=== PATIENT | female | born 1995 | race Caucasian/White ===

== ENCOUNTER 2021-08-16 17:42 | Emergency (ER) | payer OTHER, SELFPAY ==
--- NOTE | ~2021-08-16 | XR_ITS ---
EXAMINATION: XR forearm RT 2V DATE: 08/16/2021 20:19 INDICATION: Right forearm injury and pain. TECHNIQUE: 2 views of right forearm were obtained. COMPARISON: None. FINDINGS: Bone alignment is normal. There is a nondisplaced oblique fracture of distal ulnar metaphys is. Joint spaces are normal. No elbow joint effusion. IMPRESSION: 1. Nondisplaced oblique fracture of distal ulnar metaphysis. Reviewed, dictated and finalized at location A. D MANAGER
--- NOTE | ~2021-08-16 | XR_ITS ---
EXAMINATION: XR hand RT min 3V DATE: 08/16/2021 20:18 INDICATION: Right hand injury and pain. TECHNIQUE: 3 views of right hand were obtained. COMPARISON: None. FINDINGS: Bone alignment is normal. There is a nondisplaced oblique fracture of distal ulnar metaphys is. Joint spaces are normal. IMPRESSION: 1. Nondisplaced oblique fracture of distal ulnar metaphysis. Reviewed, dictated and finalized at location A. PRESIDENT RISK MANAGEMENT
[2021-08-16 17:55] VITALS: BP 129/82; PULSE 93; RESP 18; TEMP 37.5; O2SAT 100
[2021-08-16 19:59] VITALS: BP 134/96; PULSE 91; RESP 16; O2SAT 100
--- NOTE | 2021-08-16 20:03 | ED.UPPEXIN ---
HPI - Extremity Injury (Upper) General Chief Complaint: Extremity Injury, Upper <Yina Browne PA-C - Last Filed: 08/16/21 20:54> Stated Complaint: R arm pain, Laceration finger <Yina Browne PA-C - Last Filed: 08/16/21 20:54> Time Seen by Provider: 08/16/21 19:51 <Yina Browne PA-C - Last Filed: 08/16/21 20:54> Source: patient <Yina Browne PA-C - Last Filed: 08/16/21 20:54> Mode of arrival: ambulatory <Yina Browne PA-C - Last Filed: 08/16/21 20:54> Limitations: no limitations <Yina Browne PA-C - Last Filed: 08/16/21 20:54> History of Present Illness HPI narrative: This is a 26-year-old female that presents the emergency department for right forearm injury sustained last night. Reports she got angry and hit something. Reports she has had swelling and bruising to the left forearm and wrist. Reports decreased range of motion due to pain. Also reports superficial abrasions of the fingers. Denies numbness. <Yina Browne PA-C - Last Filed: 08/16/21 20:54> Related Data Allergies/Adverse Reactions: Allergies Allergy/AdvReac Type Severity Reaction Status Date / Time No Known Allergies Allergy Unverified 08/16/21 20:58 <Yina Browne PA-C - Last Filed: 08/16/21 20:54> Review of Systems Review of Systems: CONSTITUTIONAL: Denies fever SKIN: Reports abrasions MUSCULOSKELETAL: Reports joint pain, and myalgia. NEUROLOGIC: Denies numbness <Yina Browne PA-C - Last Filed: 08/16/21 20:54> All systems reviewed & are unremarkable except as noted in HPI and below <Yina Browne PA-C - Last Filed: 08/16/21 20:54> PMFSH Past Medical History Medical History: Medical History (Updated 08/16/21 @ 20:48 by Yina Browne PA-C) History of bipolar disorder <Yina Browne PA-C - Last Filed: 08/16/21 20:54> Social History Social History: Social History (Updated 08/16/21 @ 20:05 by Yina Browne PA-C) Smoking status: Current every day smoker <Yina Browne PA-C - Last Filed: 08/16/21 20:54> Exam Narrative: GENERAL: Well-appearing, well-nourished, and in no acute distress. HEAD: Normocephalic, atraumatic. EYES: EOMI. EXTREMITIES: Normal range of motion. Mild edema and bruising to the right forearm and wrist. Normal radial pulses. Normal sensation SKIN: Warm, dry, no rash. Superficial abrasions to the right 3rd and 4th fingers NEURO: No focal deficits. Alert and oriented x3. 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 I was available for evaluation and consultation, I agree with the documentation <Marquis Buck MD - Last Filed: 08/16/21 23:24> Vital Signs Vital signs: Vital Signs Temperature 37.5 C 08/16/21 17:55 Pulse Rate 93 08/16/21 17:55 Respiratory Rate 18 08/16/21 17:55 Blood Pressure 129/82 08/16/21 17:55 Pulse Oximetry 100 08/16/21 17:55 Temperature 36.6 C 08/16/21 20:56 Pulse Rate 88 08/16/21 20:56 Respiratory Rate 16 08/16/21 20:56 Blood Pressure 127/88 08/16/21 20:56 Pulse Oximetry 100 08/16/21 20:56 <Yina Browne PA-C - Last Filed: 08/16/21 20:54> Vital Signs Temperature 37.5 C 08/16/21 17:55 Pulse Rate 93 08/16/21 17:55 Respiratory Rate 18 08/16/21 17:55 Blood Pressure 129/82 08/16/21 17:55 Pulse Oximetry 100 08/16/21 17:55 Temperature 36.6 C 08/16/21 20:56 Pulse Rate 88 08/16/21 20:56 Respiratory Rate 16 08/16/21 20:56 Blood Pressure 127/88 08/16/21 20:56 Pulse Oximetry 100 08/16/21 20:56 <Marquis Buck MD - Last Filed: 08/16/21 23:24> Procedures Orthopedic Splinting/Casting Injury #1: Splinting/Casting Date: 08/16/21 <Yina Browne PA-C - Last Filed: 08/16/21 20:54> Splinting/Casting Time: 20:45 <Joanna Weems
[2021-08-16 20:56] VITALS: BP 127/88; PULSE 88; RESP 16; TEMP 36.6; O2SAT 100
[2021-08-16] MEDS: HYDROcodone/acetaminophen (*CRX) 5-325 MG TABLET 1 TAB PO (21:01)
== END 2021-08-16 21:25 | disposition home or self-care (01) ==
LOC: ANHED 21:09
PROVIDERS: Emergency Provider Emergency Medicine; PCP Internal Medicine
DX: S52.601A Unspecified fracture of lower end of right ulna, initial encounter for closed fracture (principal); F17.210 Nicotine dependence, cigarettes, uncomplicated; W22.09XA Striking against other stationary object, initial encounter
CPT/HCPCS: 29125; 73090; 73130; 99284; A9270

== ENCOUNTER 2021-09-06 10:03 | Emergency (ER) | payer OTHER, SELFPAY ==
--- NOTE | ~2021-09-06 | XR_ITS ---
XR knee LT min 4V DATE: 09/06/2021 11:19 INDICATION: Pain and swelling after twisting injury 3 days ago TECHNIQUE: 4 views including crosstable lateral COMPARISON: None FINDINGS: There is prominent distention of suprapatellar bursa consistent with joint effusion. No fat fluid level is detected to suggest lipohemarthrosis. No fracture or dislocation, periosteal reaction or bone destruction, joint space narrowing, radiopaqu e intra-articular loose body or chondrocalcinosis is detected. IMPRESSION: Knee joint effusion; no fracture or dislocation is detected Reviewed, dictated and finalized at location A. CRATER
[2021-09-06 10:17] VITALS: BP 118/80; PULSE 102; RESP 16; TEMP 36.7; O2SAT 100
--- NOTE | 2021-09-06 11:54 | ED.GENADULT ---
HPI - General Adult General Chief complaint: Extremity Injury, Lower Stated complaint: knee pain Time Seen by Provider: 09/06/21 10:22 Source: patient Mode of arrival: ambulatory Limitations: no limitations History of Present Illness HPI narrative: Pt presents for evaluation and treatment of left knee pain. Symptom onset three days ago. She indicates she twisted her left knee when she was falling off a couch. She did not hit her head nor did she have a LOC. She states her pain has been constant since that time. She states pain is sharp, shooting, 9/10 in severity. Weight bearing and movement make her pain worse. She has been taking tylenol with some improvement in her symptoms thereafter. She states she has a history of torn meniscus in contralateral knee. Related Data Allergies Allergy/AdvReac Type Severity Reaction Status Date / Time No Known Allergies Allergy Verified 09/06/21 11:20 Review of Systems Review of Systems: CONSTITUTIONAL: Denies fever, chills, or sweats. EYES: Denies visual changes, redness, or discharge. ENT: Denies rhinorrhea, congestion, sore throat, or otalgia. CARDIOVASCULAR: Denies chest pain, palpitations, or edema. RESPIRATORY: Denies cough or dyspnea. GASTROINTESTINAL: Denies abdominal pain, nausea, vomiting, or diarrhea. GENITOURINARY: Denies dysuria or hematuria. SKIN: Denies rash or itching. MUSCULOSKELETAL: Reports left knee pain. Denies back pain or myalgia. NEUROLOGIC: Denies headache, numbness, dizziness, or weakness. PSYCHIATRIC: Denies anxiety or depression. [facility] Past Medical History Medical History (Updated 09/06/21 @ 12:05 by CHANELLE Betancourt, ) Anxiety History of bipolar disorder Insomnia Surgical History Surgical History History of medial meniscus repair of right knee Family History Family History Mother No pertinent past medical history Other Cerebrovascular accident Depression Heart disease Hypertension Thyroid disease Social History Social History Smoking status: Current every day smoker Alcohol intake: never Substance use: never Additional living arrangements comments: Lives with boyfriend Gender identity (if verbalized by the patient): Female Sexual Orientation (if Verbalized by the Patient): Straight or Heterosexual Spiritual care concerns: No Exam Narrative: GENERAL: Well-appearing, well-nourished, and in no acute distress. HEAD: Normocephalic, atraumatic. EYES: PERRLA and EOMI. ENT: Nares clear, no rhinorrhea or epistaxis. Mucous membranes moist. Oropharynx without tonsillar hypertrophy exudate or other lesions. Bilateral TMs pearly orr nonbulging NECK: Supple. No adenopathy or masses. No carotid bruits or JVD CHEST: Clear to auscultation. No respiratory distress. No wheezes rales or rhonchi HEART: Regular rate and rhythm. No murmur heard. Normal peripheral pulses. ABDOMEN: Soft, nontender, nondistended, normal active bowel sounds. EXTREMITIES: Decreased active and passive ROM of left knee. There is swelling in anterior aspect of left knee. There is tenderness circumferentially in left knee. There is no crepitus or deformity SKIN: Warm, dry, no rash. NEURO: No focal deficits. Alert and oriented x3. PSYCH: Normal mood and affect. Course Course Emergency Course: This is a 26-year-old female who presents with left knee pain after twisting the knee three days ago. X ray was negative for fracture. There is effusion present on exam and x ray. She was advised on RICE therapy. She was provided with knee immobilizer and crutches. She was advised to call ortho for appt. May need non-emergent MRI. Will dc with ibuprofen and norco. She should return for worsening symptoms. Pt in agreement with plan of care. Vital Signs Vital signs: Vital Si
[2021-09-06] MEDS: HYDROcodone/acetaminophen (*CRX) 5-325 MG TABLET 2 TAB PO (12:35)
[2021-09-06 12:40] VITALS: BP 109/76; PULSE 88; RESP 16; TEMP 36.4; O2SAT 100
== END 2021-09-06 12:40 | disposition home or self-care (01) ==
PROVIDERS: Emergency Provider Nurse Practitioner; PCP Internal Medicine
DX: S86.912A Strain of unspecified muscle(s) and tendon(s) at lower leg level, left leg, initial encounter (principal); F17.200 Nicotine dependence, unspecified, uncomplicated; W08.XXXA Fall from other furniture, initial encounter
CPT/HCPCS: 73564; 99283; A9270

== ENCOUNTER 2021-10-23 09:56 | Emergency (ER) | payer OTHER, SELFPAY ==
--- NOTE | ~2021-10-23 | XR_ITS ---
EXAMINATION: XR chest 2V EXAM DATE: 10/23/2021 12:51 INDICATION: Cough. TECHNIQUE: Frontal and lateral projections of the chest obtained and reviewed. Comparison is made to prior examination from 07/13/2012. FINDINGS: The lungs are clear. There are no pleural effusions. The cardiomediastinal silhouette is within normal limits. There is no pneumothorax suspected. The bones and soft tissues are unremarkab le. IMPRESSION: Unremarkable chest x-ray exam. Reviewed, dictated and finalized at location B. 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
[2021-10-23 10:03] VITALS: BP 139/68; PULSE 81; RESP 18; TEMP 36.4; O2SAT 100
--- NOTE | 2021-10-23 10:29 | ECG_ITS ---
Measurements Intervals [place] Rate: 96 P: 49 NC: 136 QRS: 52 QRSD: 81 T: 45 QT: 346 QTc: 439 Interpretive Statements SINUS RHYTHM DELAYED PRECORDIAL R/S TRANSITION MINIMAL Q WAVES- INFERIOR LEADS BORDERLINE ECG Electronically Signed On 10-24-2021 14:56:48 SCHOOL BUS TECHNICIAN by Roldan Ramos D.O.
[2021-10-23 12:13] VITALS: BP 112/70; PULSE 84; RESP 22; O2SAT 100
[2021-10-23 12:17] VITALS: PULSE 66
--- NOTE | 2021-10-23 12:28 | ED.SOB ---
HPI - SOB/Dyspnea General Chief Complaint: Shortness of Breath/Dyspnea Stated Complaint: shortness of breath Time Seen by Provider: 10/23/21 12:09 Source: patient Mode of arrival: ambulatory Limitations: no limitations History of Present Illness HPI Narrative: Patient is a 26-year-old female complaining of palpitations, accompanied by shortness of breath that started a few days ago . Patient states that she had some dizziness earlier but now resolved. Patient denies any chest pain, abdominal pain, nausea, vomiting, diaphoresis, fever or chills. Related Data Home Medications Medication Instructions Recorded Confirmed cariprazine [Vraylar] 4.5 mg PO DAILY 10/23/21 10/23/21 trazodone 100 mg PO HS PRN 10/23/21 10/23/21 Allergies Allergy/AdvReac Type Severity Reaction Status Date / Time No Known Allergies Allergy Verified 10/23/21 12:22 Review of Systems Review of Systems: All systems reviewed & are unremarkable except as noted in HPI and below Constitutional: Constitutional: Denies body ache(s), Denies chills, Denies excessive sweating, Denies fatigue, Denies fever(s), Denies headache(s), Denies lethargy, Denies malaise, Denies weakness and Denies weight loss Eyes: Eyes: Denies blurry vision, Denies change in vision and Denies loss of vision ENT: Denies dizziness, Denies ear discharge, Denies headache(s), Denies lip swelling, Denies epistaxis, Denies nasal congestion, Denies neck pain, Denies throat swelling and Denies tongue swelling Cardiovascular: Cardiovascular: Denies chest pain, Denies chest pain at rest, Denies chest pain with activity, Denies diaphoresis, Denies rapid heart rate, Denies edema, Denies irregular heart rhythm, Denies lightheadedness and Denies palpitations Respiratory: Respiratory: Denies chest congestion, Denies cough and Denies hemoptysis Gastrointestinal: Gastrointestinal: Denies abdominal pain, Denies melena, Denies hematochezia, Denies diarrhea, Denies nausea, Denies vomiting and Denies hematemesis Musculoskeletal: Musculoskeletal: Denies abnormal gait, Denies deformity, Denies joint swelling, Denies limited range of motion, Denies neck pain and Denies numbness Neurologic: Denies Abnormal speech present, Denies abnormal gait, Denies confusion, Denies dizziness, Denies headache(s), Denies focal weakness, Denies loss of vision, Denies numbness, Denies Other visual disturbances, Denies Sensory deficit (Neuro) and Denies weakness Psychiatric: Psychiatric: Denies confusion, Denies depression, Denies auditory hallucinations, Denies homicidal ideation and Denies suicidal ideation Endocrine: Endocrine: Denies cold intolerance, Denies excessive sweating, Denies fatigue, Denies heat intolerance and Denies palpitations Hematologic/Lymphatic: Hematologic/Lymphatic: Denies easy bleeding and Denies easy bruising Allergic/Immunologic: Allergic/Immunologic: Denies lip swelling, Denies throat swelling and Denies tongue swelling PMFSH Past Medical History Medical History Anxiety History of bipolar disorder Insomnia Surgical History Surgical History History of medial meniscus repair of right knee Family History Family History Mother No pertinent past medical history Other Cerebrovascular accident Depression Heart disease Hypertension Thyroid disease Social History Social History Smoking status: Current every day smoker Alcohol intake: never Substance use: never Additional living arrangements comments: Lives with boyfriend Gender identity (if verbalized by the patient): Female Sexual Orientation (if Verbalized by the Patient): Straight or Heterosexual Spiritual care concerns: No Exam Const: General: cooperative, healthy appearing, comfortable, no acute
[2021-10-23 13:13] LABS: Basophils Absolute Auto 0.1 K/mm3 (0.0-0.1); Basophils Percent Auto 1.3 % (0.2-1.2); Eosinophils Percent Auto 0.3 % (0-4.4); Hematocrit 44.6 % (37.0-47.0); Hemoglobin 14.6 g/dL (12.0-15.0); Immature Granulocyte Absolute 0.02 K/mm3 (0.00-0.031); Immature Granulocyte Percent A 0.3 % (0-0.5); Lymphocytes Absolute Auto 2.21 K/mm3 (0.9-3.2); Lymphocytes Percent Auto 36.2 % (18.3-44.2); Mean Corpuscular HGB Conc 32.7 g/dl (32-36); Mean Corpuscular Hemoglobin 31.3 pg (26-34); Mean Corpuscular Volume 95.7 fl (80-100); Mean Platelet Volume 9.3 fl (7.4-10.4); Monocytes Absolute Auto 0.4 K/mm3 (0.1-0.6); Neutrophils Absolute Auto 3.4 K/mm3 (1.3-6.7); Neutrophils Percent Auto 54.9 % (45.5-73.1); Platelet Count Result 219 k/mm3 (150-375); Red Blood Count 4.66 M/mm3 (4.2-5.4); Red Cell Distribution Width 11.6 % (11.5-14.5); White Blood Count 6.1 K/mm3 (4.5-10.0)
[2021-10-23 13:23] LABS: Anion Gap 5 mmol/L (8-16); Blood Urea Nitrogen 15 mg/dL (7-17); Calcium 9.1 mg/dL (8.4-10.2); Carbon Dioxide 25 mmol/L (22-30); Chloride 108 mmol/L (98-107); Estimated CRCL calculation 115 ml/min; Estimated Glomerular Filt Rate > 60; Glucose 94 mg/dL (65-110); Potassium 4.4 mmol/L (3.4-5.0); Sodium 138 mmol/L (137-145)
[2021-10-23 13:34] LABS: Troponin I < 0.012 ng/mL (0.000-0.034)
[2021-10-23 13:47] LABS: D Dimer < 0.22 ug/mL (<0.48)
[2021-10-23 14:03] VITALS: BP 116/73; PULSE 74; RESP 18; O2SAT 100
[2021-10-23 15:45] VITALS: BP 114/77; PULSE 88; RESP 18; O2SAT 98
== END 2021-10-23 15:46 | disposition home or self-care (01) ==
PROVIDERS: Emergency Provider Emergency Medicine; PCP Internal Medicine
DX: R00.2 Palpitations (principal); R06.00 Dyspnea, unspecified; F17.210 Nicotine dependence, cigarettes, uncomplicated; F41.9 Anxiety disorder, unspecified; F31.9 Bipolar disorder, unspecified
CPT/HCPCS: 36415; 71046; 80048; 81025; 84484; 85025; 85380; 93005; 99284

== ENCOUNTER 2022-09-04 08:25 | Emergency (ER) | payer OTHER, SELFPAY ==
[2022-09-04 08:35] VITALS: BP 123/85; PULSE 84; RESP 18; TEMP 36.4; O2SAT 98
--- NOTE | 2022-09-04 09:14 | ED.URI ---
HPI - URI/Sore Throat General Chief Complaint: Upper Respiratory Infection Stated Complaint: productive cough Time Seen by Provider: 09/04/22 09:15 Source: patient, RN notes reviewed and old records reviewed Mode of arrival: ambulatory Limitations: no limitations History of Present Illness HPI Narrative: 27-year-old female presents to the [facility] complaints productive cough from for the last 10+ days. Has been using cough drops and taking Mucinex DM. Denies fevers, chest pain, abdominal pain. Related Data Home Medications Medication Instructions Recorded Confirmed cariprazine 4.5 mg capsule 4.5 mg PO DAILY 10/23/21 09/04/22 (Vraylar) trazodone 100 mg tablet 100 mg PO HS PRN Sleep 10/23/21 09/04/22 Allergies Allergy/AdvReac Type Severity Reaction Status Date / Time No Known Allergies Allergy Verified 09/04/22 09:01 Review of Systems Review of Systems: All systems reviewed & are unremarkable except as noted in HPI and below Constitutional: Constitutional: Reports no additional constitutional complaints Eyes: Eyes: Reports no additional eye complaints ENT: Reports system reviewed and no additional complaints, except as documented Cardiovascular: Cardiovascular: Reports no additional cardiovascular complaints, Denies chest pain and Denies dyspnea Respiratory: Respiratory: Reports as per HPI, Denies chest congestion, Reports cough, Denies dyspnea and Denies wheezing Gastrointestinal: Gastrointestinal: Reports no additional gastrointestinal complaints, Denies abdominal pain, Denies nausea and Denies vomiting Musculoskeletal: Musculoskeletal: Reports no additional musculoskeletal complaints Integumentary/Breasts: Skin/Breast: Reports system reviewed and no additional complaints, except as docu Neurologic: Reports system reviewed and no additional complaints, except as documented Psychiatric: Psychiatric: Reports no additional psychiatric complaints Allergic/Immunologic: Allergic/Immunologic: Reports no additional allergic/immunologic complaints [facility] Past Medical History Medical History Anxiety History of bipolar disorder Insomnia Surgical History Surgical History History of medial meniscus repair of right knee Family History Family History Mother No pertinent past medical history Other Cerebrovascular accident Depression Heart disease Hypertension Thyroid disease Social History Social History (Reviewed 09/04/22 @ 14:35 by CATY Hair Smoking status: Current every day smoker Alcohol intake: never Substance use: never Additional living arrangements comments: Lives with boyfriend Gender identity (if verbalized by the patient): Female Sexual Orientation (if Verbalized by the Patient): Straight or Heterosexual Spiritual care concerns: No Comments At the time of my signature, I reviewed and agree with the nursing past medical, surgical, social, and family history. There is no relevant family history pertinent to the patient complaint. Exam Const: General: cooperative, healthy appearing, comfortable, no acute distress, well developed, alert and well nourished Nutritional Appearance: well nourished Orientation/consciousness: patient oriented x3 Limitations: no limitations HENMT: Head: normal to inspection Ears: hearing grossly normal bilaterally and external ears normal Face/Nose/Sinus: Normal external nose present, Normal nares present, Normal nasal mucous membranes and turbinates present and normal facial exam Face and sinus: normal facial exam Mouth: Yes Normal oral and palatal mucosa present, Yes lip normal and Yes moist mucous membranes Throat: posterior oropharynx normal and uvula midline Eyes: General: appearance normal, both eyes and all related structures Alignment and Position: alignmen
== END 2022-09-04 09:25 | disposition home or self-care (01) ==
PROVIDERS: Emergency Provider Nurse Practitioner; PCP Internal Medicine
DX: J20.9 Acute bronchitis, unspecified (principal); F17.200 Nicotine dependence, unspecified, uncomplicated
CPT/HCPCS: 99213; G0463

== ENCOUNTER 2023-01-07 13:14 | Emergency (ER) | payer OTHER, SELFPAY ==
[2023-01-07] VITALS (30 sets, daily range): BP systolic 121–138; BP diastolic 78–95; PULSE 67–110; RESP 14–26; TEMP 36.8; O2SAT 97–100
--- NOTE | ~2023-01-07 | XR_ITS ---
EXAMINATION: XR chest 1V portable Exam Date/Time: 01/07/2023 14:00 CDT HISTORY: MIDLINE CHEST PAIN Comparison: 10/23/2021. RESULT: Lines, tubes, and devices: None. Lungs and pleura: Right hemidiaphragm elevation. Decreased lung volumes with crowding relative to th e prior. Lungs otherwise clear. Cardiomediastinal silhouette: Stable. Other: No acute osseous or upper abdominal finding. IMPRESSION: No acute cardiopulmonary process. Right hemidiaphragm elevation. Reviewed, dictated and finalized at location K.
--- NOTE | 2023-01-07 13:17 | ECG_ITS ---
Measurements Intervals [place] Rate: 97 P: 24 [place]: 146 QRS: 1 QRSD: 78 T: 34 QT: 341 QTc: 434 Interpretive Statements SINUS RHYTHM POSSIBLE ANTERIOR MYOCARDIAL INFARCTION , PROBABLY OLD [30 ms Q WAVE IN V3/V4, OR R < 0.2 mV IN V4] ABNORMAL ECG COMPARED TO ECG 10/23/2021 10:06:15 NO SIGNIFICANT CHANGES Electronically Signed On 01-07-2023 15:15:59 CDT by Renan Escalante M.D.
--- NOTE | 2023-01-07 13:32 | ED.CHESTPAIN ---
HPI - Chest Pain General Chief Complaint: Chest Pain Stated Complaint: just don't feel right Time Seen by Provider: 01/07/23 13:32 Source: patient and family Mode of arrival: ambulatory Limitations: no limitations History of Present Illness HPI narrative: Patient is a 27-year-old female with a history of bipolar disorder presenting to the emergency department for evaluation of upper abdominal pain, lower chest pain has been intermittent over the course of the morning. Patient reports intermittent aching chest pain with a burning sensation in the middle of her chest that radiates into her upper chest. No radiation to the back, jaw, neck, shoulder. No ripping or tearing sensation to the flank. No syncope. Associated with lightheadedness, denies dizziness. Reports nausea without vomiting. Patient reports upper abdominal pain which is aching in nature, no radiation to the flank. No associated lower abdominal pain. No dysuria or hematuria. No abdominal distention. Denies diarrhea or constipation. Denies history of this in the past. No recent car or air travel. No history of coagulopathy. No leg swelling or calf pain. No recent surgery or immobility. Pt with nexplanon in place. Related Data Home Medications Medication Instructions Recorded Confirmed cariprazine 4.5 mg capsule 4.5 mg PO DAILY 10/23/21 09/04/22 (Vraylar) trazodone 100 mg tablet 100 mg PO HS PRN Sleep 10/23/21 09/04/22 Allergies Allergy/AdvReac Type Severity Reaction Status Date / Time No Known Allergies Allergy Verified 09/04/22 09:01 Review of Systems Review of Systems: CONSTITUTIONAL: Denies fever, chills, or sweats. EYES: Denies visual changes, redness, or discharge. ENT: Denies rhinorrhea, congestion, sore throat, or otalgia. CARDIOVASCULAR: Denies current chest pain, palpitations, or edema. RESPIRATORY: Denies cough or dyspnea. GASTROINTESTINAL: Denies current abdominal pain, reports mild nausea, denies vomiting or diarrhea GENITOURINARY: Denies dysuria or hematuria. SKIN: Denies rash or itching. MUSCULOSKELETAL: Denies back pain, joint pain, or myalgia. NEUROLOGIC: Denies headache, numbness, or weakness. [facility] Past Medical History Medical History Anxiety History of bipolar disorder Insomnia Surgical History Surgical History History of medial meniscus repair of right knee Family History Family History Mother No pertinent past medical history Other Cerebrovascular accident Depression Heart disease Hypertension Thyroid disease Social History Social History Smoking status: Current every day smoker Alcohol intake: never Substance use: never Living arrangements: alone Additional living arrangements comments: Lives with boyfriend Occupation/Education: student Gender identity (if verbalized by the patient): Female Sexual Orientation (if Verbalized by the Patient): Straight or Heterosexual Spiritual care concerns: No Exam Narrative: GENERAL: Awake, alert, conversant HEAD: Normocephalic, atraumatic. EYES: PERRLA and EOMI. ENT: Nares clear, no rhinorrhea or epistaxis. Mucous membranes moist. NECK: Supple. CHEST: No respiratory distress, breathing even and non labored, no chest wall tenderness HEART: Tachycardic rate, sinus rhythm ABDOMEN:Non distended, non tender, no rebound, rigidity in all 4 quadrants EXTREMITIES: Normal range of motion. No edema. No calf tenderness bilaterally. SKIN: Warm, dry, no rash. NEURO:No focal deficits. Alert and oriented x3 Course Vital Signs Vital signs: Vital Signs Temperature 36.8 C 01/07/23 13:22 Pulse Rate 101 H 01/07/23 13:22 Respiratory Rate 16 01/07/23 13:22 Blood Pressure 138/91 H 01/07/23 13:22 Pulse Oximetry 97
[2023-01-07 13:45] LABS: Basophils Absolute Auto 0.1 K/mm3 (0.0-0.1); Basophils Percent Auto 1.4 % (0.2-1.2); Eosinophils Absolute Auto 0.1 K/mm3 (0-0.3); Eosinophils Percent Auto 1.1 % (0-4.4); Hematocrit 46.5 % (37.0-47.0); Hemoglobin 15.8 g/dL (12.0-15.0); Immature Granulocyte Absolute 0.05 K/mm3 (0.00-0.031); Immature Granulocyte Percent A 0.8 % (0-0.5); Lymphocytes Absolute Auto 1.95 K/mm3 (0.9-3.2); Lymphocytes Percent Auto 30.3 % (18.3-44.2); Mean Corpuscular Volume 94.1 fl (80-100); Mean Platelet Volume 9.4 fl (7.4-10.4); Monocytes Absolute Auto 0.4 K/mm3 (0.1-0.6); Monocytes Percent Auto 6.2 % (2.6-8.5); Neutrophils Absolute Auto 3.9 K/mm3 (1.3-6.7); Neutrophils Percent Auto 60.2 % (45.5-73.1); Platelet Count Result 260 k/mm3 (150-375); Red Blood Count 4.94 M/mm3 (4.2-5.4); Red Cell Distribution Width 11.3 % (11.5-14.5); White Blood Count 6.4 K/mm3 (4.5-10.0)
[2023-01-07] MEDS: ASPIRIN 81 MG CHEWABLE TABLET 324 MG PO (13:51)
[2023-01-07 13:58] LABS: Alanine Aminotransferase 30 U/L (6-35); Albumin Level 4.7 g/dL (3.5-5.1); Alkaline Phosphatase 86 U/L (38-126); Anion Gap 7 mmol/L (8-16); Aspartate Amino Transferase 28 U/L (14-36); Bilirubin,Total 0.7 mg/dL (0.2-1.3); Blood Urea Nitrogen 17 mg/dL (7-17); Calcium 9.1 mg/dL (8.4-10.2); Carbon Dioxide 28 mmol/L (22-30); Chloride 105 mmol/L (98-107); Estimated CRCL calculation 116 ml/min; Estimated Glomerular Filt Rate > 60; Glucose 92 mg/dL (65-110); Lipase 94 U/L (23-300); Potassium 3.7 mmol/L (3.4-5.0); Sodium 140 mmol/L (137-145)
[2023-01-07 13:59] LABS: Prothrombin Time 12.7 Seconds (11.1-14.7)
[2023-01-07 14:00] LABS: Partial Thromboplastin Time 27.2 SECONDS (22.3-36.8)
[2023-01-07 14:09] LABS: Troponin I < 0.012 ng/mL (0.000-0.034)
[2023-01-07] MEDS: SODIUM CHLORIDE 0.9% IV 1,000 ML 999 ML IV CONT (14:10)
[2023-01-07] MEDS: DICYCLOMINE HCL 10 MG CAPSULE PO (14:11)
[2023-01-07] MEDS: BELLADONNA ALK/PHENOB ELIX 10 ML, MAG HYDROX/ALUMINUM HYD/SIMETH 30 ML, LIDOCAINE HCL 2... PO (14:11)
[2023-01-07] MEDS: ONDANSETRON INJ 4 MG/2 ML VIAL IV PUSH (14:12)
[2023-01-07 14:35] LABS: D Dimer 0.28 ug/mL (<0.48)
[2023-01-07 16:54] LABS: Troponin I < 0.012 ng/mL (0.000-0.034)
== END 2023-01-07 17:20 | disposition home or self-care (01) ==
PROVIDERS: Emergency Provider Emergency Medicine
DX: R07.89 Other chest pain (principal); R11.0 Nausea; F41.9 Anxiety disorder, unspecified; F31.9 Bipolar disorder, unspecified; F17.200 Nicotine dependence, unspecified, uncomplicated; R94.31 Abnormal electrocardiogram [ECG] [EKG]
CPT/HCPCS: 36415; 71045; 80053; 83690; 84484; 85025; 85380; 85610; 85730; 93005; 96361; 96374; 99284; A9270; J2405; J7030

== ENCOUNTER 2023-05-19 08:38 | Emergency (ER) | payer OTHER, SELFPAY ==
[2023-05-19 08:55] VITALS: BP 120/77; PULSE 79; RESP 16; TEMP 36.6; O2SAT 100
--- NOTE | 2023-05-19 09:23 | ED.URI ---
HPI - URI/Sore Throat General Chief Complaint: Upper Respiratory Infection Stated Complaint: sore throat Time Seen by Provider: 05/19/23 09:00 Source: patient, RN notes reviewed and old records reviewed Mode of arrival: ambulatory Limitations: no limitations History of Present Illness HPI Narrative: 27-year-old female presents to the [facility] with complaints of fatigue, sore throat since yesterday. States that she was in contact with someone who tested positive for strep yesterday on Thursday. No treatment prior to arrival. Denies fevers, abdominal pain, chest pain. Related Data Home Medications Medication Instructions Recorded Confirmed cariprazine 4.5 mg capsule 4.5 mg PO DAILY 10/23/21 05/19/23 (Vraylar) Allergies Allergy/AdvReac Type Severity Reaction Status Date / Time No Known Allergies Allergy Verified 05/19/23 08:43 Review of Systems Review of Systems: All systems reviewed & are unremarkable except as noted in HPI and below Constitutional: Constitutional: Reports no additional constitutional complaints Eyes: Eyes: Reports no additional eye complaints ENT: Reports as per HPI Cardiovascular: Cardiovascular: Reports no additional cardiovascular complaints, Denies chest pain and Denies dyspnea Respiratory: Respiratory: Reports no additional respiratory complaints, Denies chest congestion, Denies cough and Denies dyspnea Gastrointestinal: Gastrointestinal: Reports no additional gastrointestinal complaints, Denies abdominal pain, Denies nausea and Denies vomiting Musculoskeletal: Musculoskeletal: Reports no additional musculoskeletal complaints Integumentary/Breasts: Skin/Breast: Reports system reviewed and no additional complaints, except as docu Neurologic: Reports system reviewed and no additional complaints, except as documented Psychiatric: Psychiatric: Reports no additional psychiatric complaints Allergic/Immunologic: Allergic/Immunologic: Reports no additional allergic/immunologic complaints [facility] Past Medical History Medical History Anxiety History of bipolar disorder Insomnia Surgical History Surgical History History of medial meniscus repair of right knee Family History Family History Mother No pertinent past medical history Other Cerebrovascular accident Depression Heart disease Hypertension Thyroid disease Social History Social History Smoking packs per day: 0.5 Smoking cigarettes per day: 10.0 Smoking status: Current every day smoker Alcohol intake: never Substance use: never Lack of Transportation: No Lack of Food: Never True Current Housing: I Have Housing Concerned About Future Housing: No Difficulty Paying Gas/Electric Bills: No Difficulty Paying for Meds: No Currently Unemployed: No Education: Bachelor's Degree Difficulty w/ Childcare or Family Care: No Living arrangements: alone Additional living arrangements comments: Lives with boyfriend Occupation/Education: student Gender identity (if verbalized by the patient): Female Sexual Orientation (if Verbalized by the Patient): Straight or Heterosexual Spiritual care concerns: No Comments At the time of my signature, I reviewed and agree with the nursing past medical, surgical, social, and family history. There is no relevant family history pertinent to the patient complaint. Exam Const: General: cooperative, healthy appearing, comfortable, no acute distress, well developed, alert and well nourished Nutritional Appearance: well nourished and obese Orientation/consciousness: patient oriented x3 Limitations: no limitations HENMT: Head: normal to inspection Ears: hearing grossly normal bilaterally, external ears normal, TM's normal bilaterally and EAC
== END 2023-05-19 09:57 | disposition home or self-care (01) ==
PROVIDERS: Emergency Provider Nurse Practitioner; PCP Physician Assistant
DX: J06.9 Acute upper respiratory infection, unspecified (principal); F17.210 Nicotine dependence, cigarettes, uncomplicated
CPT/HCPCS: 87081; 87880; 99213; G0463